=== PATIENT | male | born 1955 | race Caucasian/White ===

== ENCOUNTER 2021-05-01 07:26 | Outpatient (CLI) | payer MEDICARE ==
[2021-05-01 08:30] LABS: Mean Corpuscular HGB CONC 33.7 g/dL (32.0-36.0); Mean Corpuscular Hemoglobin 30.5 pg (27.0-33.0); Mean Corpuscular Volume 90.6 fl (81.2-95.1); Platelet Count 258 10x3/uL (150-450); RBC Distribution Width 13.9 % (11.5-14.5); Red Blood Cell (RBC) Count 4.91 10x6/uL (4.32-5.72); White Blood Cell (WBC) Count 7.2 10x3/uL (3.5-10.5)
[2021-05-01 08:36] LABS: PTT 27.1 sec (22.0-33.0); Prothrombin Time 10.9 sec (9.5-12.1)
[2021-05-01 08:56] LABS: Anion Gap 11 mmol/L (10-20); BUN (Urea Nitrogen) 19 mg/dL (8.4-25.7); Calc. Creatinine Clearance 0 mL/min (70-130); Calcium 9.3 mg/dL (7.8-10.44); Carbon Dioxide 24 mmol/L (23-31); Chloride 107 mmol/L (98-107); Glucose 106 mg/dL (80-115); Potassium 4.3 mmol/L (3.5-5.1); Sodium 138 mmol/L (136-145)
[2021-05-01 18:25] LABS: SARS-CoV-2 PCR by NAA Not Detected (NotDetected)
== END 2021-05-01 07:27 | disposition home or self-care (01) ==
LOC: LABBT 07:26
PROVIDERS: ATTEND Internal Medicine Cardiovascular Disease
DX: Z01.818 Encounter for other preprocedural examination (principal); I48.0 Paroxysmal atrial fibrillation; Z20.822 Contact with and (suspected) exposure to COVID-19
CPT/HCPCS: 80048; 85027; 85610; 85730; 93005; U0003; U0005; 93010

== ENCOUNTER 2021-05-04 05:57 | Day surgery (SDC) | payer MEDICARE ==
[2021-05-01 09:22] VITALS: BMI 23.7
[2021-05-04] MEDS ORDERED: Heparin 25,000 units/D5W 500 ML ONE (06:41)
[2021-05-04] MEDS ORDERED: Protamine Sulfate 50 MG/5 ML VIAL ONE (06:41)
[2021-05-04] MEDS ORDERED: Heparin 10,000 UNITS/ 10 ML VIAL ONE ×2 (06:41→09:54)
[2021-05-04] MEDS ORDERED: Fentanyl 100 MCG/2 ML VIAL ONE (07:14)
[2021-05-04] MEDS ORDERED: Midazolam HCl 2 mg/2 ml Vial ONE (07:28)
[2021-05-04] MEDS ORDERED: GLYCOPYRROLATE/PF 0.2 MG/ML VIAL ONE (07:32)
[2021-05-04] MEDS ORDERED: PHENYLEPHRINE-NS 100 MCG/ML 10 ML SYRINGE ONE (07:32)
[2021-05-04] MEDS ORDERED: PROPOFOL 200 MG/20 ML VIAL ONE (07:32)
[2021-05-04] MEDS ORDERED: Lidocaine 1% PF 5 ML VIAL ONE (07:32)
[2021-05-04] MEDS ORDERED: Rocuronium Bromide 10 MG/ML (10ML VIAL) ONE (07:32)
[2021-05-04] MEDS ORDERED: Ondansetron PF 4 MG/2 ML Vial ONE (07:32)
[2021-05-04] MEDS ORDERED: ePHEDrine 50 MG/ML VIAL ONE (07:32)
[2021-05-04] MEDS ORDERED: Isoproterenol 0.2 MG/1 ML AMP ONE (08:36)
[2021-05-04] MEDS ORDERED: Potassium Chloride 20 MEQ TAB PO PRN (11:17)
[2021-05-04] MEDS ORDERED: Ketorolac Tromethamine 30 MG/ML VIAL IVP PRN (11:17)
[2021-05-04] MEDS ORDERED: Furosemide 40 MG TAB PO PRN (11:17)
[2021-05-04] MEDS ORDERED: Sucralfate 1 GM TAB PO SCH (11:30)
[2021-05-04] MEDS ORDERED: Albumin 5% 250 ML ONE (12:10)
== END 2021-05-04 15:23 | disposition home or self-care (01) ==
LOC: SDC 05:57
PROVIDERS: ATTEND Internal Medicine Cardiovascular Disease
PROC: 02583ZZ Destruction of Conduction Mechanism, Percutaneous Approach (ICD-10-PCS; principal; 2021-05-04)
PROC: 02K83ZZ Map Conduction Mechanism, Percutaneous Approach (ICD-10-PCS; 2021-05-04)
PROC: 4A023FZ Measurement of Cardiac Rhythm, Percutaneous Approach (ICD-10-PCS; 2021-05-04)
PROC: 4A0234Z Measurement of Cardiac Electrical Activity, Percutaneous Approach (ICD-10-PCS; 2021-05-04)
DX: I48.19 Other persistent atrial fibrillation (principal); I42.8 Other cardiomyopathies; I10 Essential (primary) hypertension; Z79.01 Long term (current) use of anticoagulants; Z79.899 Other long term (current) drug therapy; Z90.49 Acquired absence of other specified parts of digestive tract
CPT/HCPCS: 85347 ×2; 93005; 93613; 93622; 93623; 93656; 93657; 93662; C1732 ×2; C1759; C1776; P9045; 93010; J1644; J2250; J2405; J2704; J2720; J3010; J3490

== ENCOUNTER 2022-01-08 11:32 | Outpatient (CLI) | payer MEDICARE, OTHER ==
[2022-01-08 12:43] LABS: #Basophils 0.1 10x3/uL (0.0-0.2); #Eosinphils 0.1 10x3/uL (0.0-0.5); #Monocytes 0.7 10x3/uL (0.0-1.1); #Neutrophils 8.5 10x3/uL (1.5-8.4); %Basophils 0.6 % (0.0-2.0); %Eosinophils 0.6 % (0.0-6.0); %Lymphocytes 14.3 % (18.0-47.0); %Monocytes 6.2 % (0.0-10.0); %Neutrophils 77.9 % (40.0-75.0); Hemoglobin 14.5 g/dL (13.5-17.5); Mean Corpuscular HGB CONC 36.2 g/dL (32.0-36.0); Mean Corpuscular Hemoglobin 31.6 pg (27.0-33.0); Mean Corpuscular Volume 87.4 fl (81.2-95.1); Platelet Count 276 10x3/uL (150-450); RBC Distribution Width 13.7 % (11.5-14.5); Red Blood Cell (RBC) Count 4.59 10x6/uL (4.32-5.72); White Blood Cell (WBC) Count 10.9 10x3/uL (3.5-10.5)
[2022-01-08 13:19] LABS: PTT 27.5 sec (22.0-33.0); Prothrombin Time 11.1 sec (9.5-12.1)
[2022-01-08 13:24] LABS: ALT (SGPT) 11 U/L (8-55); AST (SGOT) 19 U/L (5-34); Albumin 4.3 g/dL (3.4-4.8); Alkaline Phosphatase 62 U/L (40-110); Anion Gap 14 mmol/L (10-20); BUN (Urea Nitrogen) 15 mg/dL (8.4-25.7); Bilirubin, Direct 0.2 mg/dL (0.1-0.3); Bilirubin, Total 0.7 mg/dL (0.2-1.2); Calc. Creatinine Clearance 0 mL/min (70-130); Calcium 9.4 mg/dL (7.8-10.44); Carbon Dioxide 24 mmol/L (23-31); Chloride 108 mmol/L (98-107); Estimated GFR 91; Glucose 78 mg/dL (80-115); Potassium 4.3 mmol/L (3.5-5.1); Protein, Total 6.4 g/dL (5.8-8.1); Sodium 142 mmol/L (136-145)
== END 2022-01-08 11:33 | disposition home or self-care (01) ==
LOC: LABBT 11:32
PROVIDERS: ATTEND Internal Medicine Cardiovascular Disease
DX: Z01.818 Encounter for other preprocedural examination (principal); I48.91 Unspecified atrial fibrillation
CPT/HCPCS: 71046; 80048; 80076; 85025; 85610; 85730; 93005; 93010

== ENCOUNTER 2023-02-09 06:40 | Day surgery (SDC) | payer MEDICARE, OTHER ==
[2023-02-07 10:49] VITALS: BMI 23.7
[2023-02-07 12:44] LABS: Hematocrit 44.9 % (38.8-50.0); Hemoglobin 15.6 g/dL (13.5-17.5); Mean Corpuscular HGB CONC 34.7 g/dL (32.0-36.0); Mean Corpuscular Hemoglobin 30.7 pg (27.0-33.0); Mean Corpuscular Volume 88.4 fl (81.2-95.1); Mean Platelet Volume 13.3 fl (7.4-10.4); Platelet Count 132 10x3/uL (150-450); RBC Distribution Width 13.2 % (11.5-14.5); Red Blood Cell (RBC) Count 5.08 10x6/uL (4.32-5.72); White Blood Cell (WBC) Count 8.1 10x3/uL (3.5-10.5)
[2023-02-07 13:11] LABS: Anion Gap 16 mmol/L (10-20); BUN (Urea Nitrogen) 25 mg/dL (8.4-25.7); Calc. Creatinine Clearance 95 mL/min (70-130); Calcium 10.2 mg/dL (7.8-10.44); Carbon Dioxide 23 mmol/L (23-31); Chloride 105 mmol/L (98-107); Estimated GFR 95; Glucose 83 mg/dL (80-115); PTT 31.1 sec (22.0-33.0); Potassium 5.4 mmol/L (3.5-5.1); Prothrombin Time 11.2 sec (9.5-12.1); Sodium 139 mmol/L (136-145)
[2023-02-09] MEDS ORDERED: Protamine Sulfate 50 MG/5 ML VIAL ONE (07:08)
[2023-02-09] MEDS ORDERED: Heparin 10,000 UNITS/ 10 ML VIAL ONE (07:08)
[2023-02-09] MEDS ORDERED: Heparin 25,000 units/D5W 500 ML ONE (07:09)
[2023-02-09] MEDS ORDERED: Isoproterenol 0.2 MG/1 ML AMP ONE (07:09)
[2023-02-09] MEDS ORDERED: Lidocaine 1% PF 5 ML VIAL ONE (09:00)
[2023-02-09] MEDS ORDERED: ePHEDrine Sulfate 50 MG/10 ML VIAL ONE (09:00)
[2023-02-09] MEDS ORDERED: PHENYLEPHRINE-NS 100 MCG/ML 10 ML SYRINGE ONE (09:00)
[2023-02-09] MEDS ORDERED: Rocuronium Bromide 10 MG/ML (10ML VIAL) ONE (09:00)
[2023-02-09] MEDS ORDERED: PROPOFOL 200 MG/20 ML VIAL ONE (09:00)
== END 2023-02-09 16:18 | disposition home or self-care (01) ==
LOC: SDC 06:40
PROVIDERS: ATTEND Internal Medicine Cardiovascular Disease
PROC: 02563ZZ Destruction of Right Atrium, Percutaneous Approach (ICD-10-PCS; principal; 2023-02-09)
DX: I48.0 Paroxysmal atrial fibrillation (principal); I11.0 Hypertensive heart disease with heart failure; I50.40 Unspecified combined systolic (congestive) and diastolic (congestive) heart failure; I42.8 Other cardiomyopathies; I25.10 Atherosclerotic heart disease of native coronary artery without angina pectoris; E78.5 Hyperlipidemia, unspecified; M19.90 Unspecified osteoarthritis, unspecified site; Z96.659 Presence of unspecified artificial knee joint; Z96.619 Presence of unspecified artificial shoulder joint; Z90.89 Acquired absence of other organs; Z90.49 Acquired absence of other specified parts of digestive tract; Z98.52 Vasectomy status; Z79.01 Long term (current) use of anticoagulants; Z79.899 Other long term (current) drug therapy
CPT/HCPCS: 80048; 85027; 85347 ×2; 85610; 85730; 93005; 93622; 93623; 93655; 93656; 93657; C1732 ×2; C1759; C1760; C1884; C1893; C1894 ×2; 93010; J1644; J2704; J2720